=== PATIENT | male | born 1945 | race Caucasian/White ===

== ENCOUNTER → 2017-05-12 | Outpatient (CLI) | payer OTHER ==
--- NOTE | 2017-05-13 11:25 | DI ---
XR T-SPINE 2VW,05/12/2017 4:48 PM: Clinical History: Midline thoracic back pain of unspecified chronicity. Previous Exam: None at this facility. Findings: AP and lateral views of the thoracic spine are obtained, and demonstrate anatomic alignment without f ractures. The lung grimes are clear. The cardiomediastinum is unremarkable. Impression: Normal thoracic spine.
== END ==
LOC: RAD 16:44
PROVIDERS: ATTEND Nurse Practitioner
DX: M54.6 Pain in thoracic spine (principal); I10 Essential (primary) hypertension; Z63.4 Disappearance and death of family member
CPT/HCPCS: 72070